=== PATIENT | male | born 1980 | race Caucasian/White ===

== ENCOUNTER 2021-03-30 09:30 | Inpatient (IN) ==
[2021-03-30] MEDS ORDERED: SODIUM CHLORIDE 0.9% 1000ML 1,000 ML IV STA (11:07)
[2021-03-30] MEDS ORDERED: SODIUM CHLORIDE 0.9% 1000ML 1,000 ML IV ONE (11:07)
[2021-03-30] MEDS ORDERED: VANCOMYCIN CONSULT ACTIVE PRN (11:11)
[2021-03-30] MEDS ORDERED: CEFEPIME 2,000 MG/20 ML VIAL IV STA (11:11)
[2021-03-30] MEDS ORDERED: VANCOMYCIN HCL 1,250 MG in SODIUM CHLORIDE 0.9% 500 ML IV ONE (11:11)
[2021-03-30] MEDS ORDERED: METOCLOPRAMIDE HCL INJ 5 MG/ML 2 ML VIAL IV ONE (11:13)
[2021-03-30] MEDS ORDERED: diphenhydrAMINE 50 MG/ML VIAL IV STA (11:25)
--- NOTE | 2021-03-30 11:36 | Emergency Department Note ---
Impression & Plan Multifocal pneumonia, Acute dehydration, Nausea ED Provider Note INFORMANT: Patient ED PROVIDER(S): Julian Frank MD CHIEF COMPLAINT: Shortness of breath and nausea PLAN: Disposition: Admitted Condition: Good Outpatient prescription management: none Referral: None MEDICAL DECISION MAKING: Patient presents back to emergency department because of shortness of breath and continued nausea. He has bilateral pneumonia. He was hypotensive and tachycardic. This was concerned about possible sepsis. The patient had fluids administered. Broad-spectrum antibiotics were administered as well as blood work and blood cultures. Record was reviewed. The patient was very nauseated and noted abdominal pain. He was treated with Reglan and Benadryl. He was also given IV Ativan as during the work-up he had "a full-blown panic attack" by his own accord. Family was present and notes that he does have anxiety but this was a significant panic attack. The Ativan worked very well to control his panic and anxiety symptoms. The patient underwent CT imaging. Under the circumstances I suspect patient is dehydrated as he is not eating and drinking well. He and I discussed further management in the hospital. He and family were in agreement. Consultation was made with the hospitalist service. The patient was evaluated by Dr. Corrales's team for the management. Triage Nursing notes reviewed and agree them. Vital Signs: reviewed and remarkable for tachycardia Differential diagnosis: Infection, dehydration, metabolic abnormality, hypo/hyperglycemia, electrolyte disturbance, anemia, hypoxia, cardiac sources, intracerebral event, toxicologic, neurologic, as well as other pathologies. Diagnostics interpreted by me: ECG: Rate: 69 Rhythm:Normal sinus [place]:Normal QRS:Normal ST segements:No elevation or depression Other:No PACs or PVCs Cardiac Monitoring: Cardiac monitoring ordered by me: The patient was placed on continuous cardiac monitoring and observed. It revealed a sinus tachycardia at 102 beats per minute without ectopy or evidence of dysrhythmia. Imaging studies: Chest x-ray shows bilateral pneumonia however improved since prior.. CT scan of the abdomen and pelvis reveals no acute intra-abdominal findings. Gr oundglass densities noted in the base of the lungs. HPI: The patient is a 40 year old male who presents to the Emergency Room with complaints of SOB. This started last week and is persisting. Patient was seen in the ER multiple times over the last week. He was diagnosed with multifocal pneumonia. I suspect to be viral. He was treated with oral antibiotics. This is most modified to Levaquin. He was also noting intense nausea. He is unable to eat and drink. He was able to take his Levaquin today but notes significant difficulty doing so. The patient also notes the following associated symptoms, epigastric abdominal pain, night sweats. The patient has tried Zofran unsuccessfully for nausea relieving factors. Current pain is rated as 4/10. Pt denies LOC, headache, fevers, chills, diaphoresis, visual changes, neck pain, chest pain, vomiting, back pain, melena, hematochezia, urinary symptoms, numbness, weakness, lymphadenopathy, rash, or other complaints. ROS: See above HPI for pertinent positives & negatives. A total of 10 systems reviewed and were otherwise negative. PAST MEDICAL HISTORY:See Below , multifocal pneumonia PAST SURGICAL HISTORY:See Below, FAMILY HISTORY:See Below SOCIAL HISTORY:See Below, HOME MEDICATIONS:See Below ALLERGIES:See Below VITALS:See Below PHYSICAL EXAMINATION: GENERAL: Awake, alert, uncomfortable-appearing, in no distress HENT: Normocephalic, atraumatic. Oropharynx unremarkable. EYES: Normal conjunctiva. Sclera non-icteric. NECK: Inspection normal. Non-tender. Supple. No nuchal rigidity. FROM. No masses. RESPIRATORY: Clear to auscultation. No wheezes. No rales. Normal respiratory effort. CARDIAC: Tachycardic rate. Normal rhythm. No murmurs. No rubs. Extremities warm and well perfused. Pulses equal. No JVD. GI: Soft, non-distended. Epigastric tenderness to palpation. No rebound or guarding. No masses. RECTAL: Deferred. MUSCULOSKELETAL: Atraumatic. Chest examination reveals no tenderness. The back is symmetrical on inspection without obvious abnormality. There is no CVA tenderness to palpation. No joint edema. LOWER EXTREMITIES: Calves are equal size bilaterally and non-tender. No edema. No discoloration. NEURO: Normal sensorium. No sensory or motor deficits noted. SKIN: No rash or jaundice noted. Julian Frank MD Past Med/Surg History Medical History (Updated 03/30/21 @ 15:57 by Gasper Rodriguez MD) Depression Flu-like symptoms Pneumonia Family History Other Family history non-contributory Social History Smoking Status: Never smoker Hx Alcohol Use: No Hx Substance Use: Yes Last Used Substance: Unknown Preferred Language: Bulgarian Communication Ability: Effective Pricing Clerk Required: No Beliefs That Will Affect Care: None Current Living Situation: Spouse and Family Feels Safe at Home: Yes Assistive Devices: None Allergies Allergies Allergy/AdvReac Type Severity Reaction Status Date / Time aspirin Allergy Severe FACE AND Verified 03/30/21 11:12 THROAT SWELLS ibuprofen Allergy Severe FACE AND Verified 03/30/21 11:12 THROAT SWELL Home Meds Home Medications Medication Instructions Recorded Confirmed escitalopram oxalate 20 mg tablet 30 mg PO QAM 03/19/21 03/30/21 acetaminophen 500 mg tablet 500 - 1,000 mg PO Q6H PRN 03/22/21 03/30/21 (Tylenol Extra Strength) naproxen sodium 220 mg tablet 220 mg PO BID PRN 03/22/21 03/30/21 (Aleve) Previous Rx's Medication Instructions Recorded levofloxacin 750 mg tablet 750 mg PO DAILY 10 Days #10 tab 03/25/21 prochlorperazine maleate 10 mg 10 mg PO QID PRN #14 tab 03/25/21 tablet Results & Data (ED) Vital Signs Vital Signs - 24 hr 03/30/21 09:42 03/30/21 11:42 03/30/21 12:03 Temperature 36.7 C Temperature Source Oral Pulse Rate 106 H 73 72 Pulse Rate [Finger] 75 Pulse Rate from SpO2 Sensor Pulse Rhythm [Finger] Pulse Strength [Finger] Respiratory Rate 20 20 19 Respiratory Effort / Characteristics Respiratory Depth Respiratory Pattern Blood Pressure 94/65 L 95/64 L Blood Pressure [Left Arm] 95/64 L Blood Pressure Mean 74 74 Blood Pressure Mean [Left Arm] 74 Blood Pressure Position [Left Arm] Pulse Oximetry 93 98 Oxygen Delivery Method Room Air Room Air Oxygen Flow Rate Sepsis Recent Fever Within 48 Hours No Sepsis New/Unexplained Change in Mental Status N/A Sepsis Action Taken by Nursing No Action Required 03/30/21 12:04 03/30/21 12:30 03/30/21 13:00 Temperature Temperature Source Pulse Rate 93 H Pulse Rate [Finger] 72 Pulse Rate from SpO2 Sensor 92 H Pulse Rhythm [Finger] Regular Pulse Strength [Finger] Normal Respiratory Rate 20 16 Respiratory Effort / Characteristics Non-Labored Spontaneous Respiratory Depth Normal Respiratory Pattern Regular Blood Pressure 130/85 109/73 Blood Pressure [Left Arm] 115/80 Blood Pressure Mean 100 85 Blood Pressure Mean [Left Arm] 91 Blood Pressure Position [Left Arm] Semi-fowlers Pulse Oximetry 99 100 98 Oxygen Delivery Method Room Air Room Air Oxygen Flow Rate Sepsis Recent Fever Within 48 Hours Sepsis New/Unexplained Change in Mental Status Sepsis Action Taken by Nursing 03/30/21 13:10 03/30/21 13:30 03/30/21 14:00 Temperature Temperature Source Pulse Rate 76 76 Pulse Rate [Finger] Pulse Rate from SpO2 Sensor 76 74 Pulse Rhythm [Finger] Pulse Strength [Finger] Respiratory Rate 24 22 Respiratory Effort / Characteristics Respiratory Depth Respiratory Pattern Blood Pressure 110/79 92/62 L Blood Pressure [Left Arm] Blood Pressure Mean 89 72 Blood Pressure Mean [Left Arm] Blood Pressure Position [Left Arm] Pulse Oximetry 98 96 96 Oxygen Delivery Method Room Air Oxygen Flow Rate 0 Sepsis Recent Fever Within 48 Hours Sepsis New/Unexplained Change in Mental Status Sepsis Action Taken by Nursing Laboratory Data Result diagrams: 03/30/21 11:49 03/30/21 11:49 Lab Results 03/30/21 03/30/21 03/30/21 Range/Units 11:49 11:49 11:49 WBC 16.77 H (4.8-10.8) K/uL RBC 4.89 (4.7-6.1) M/uL Hgb 14.9 (14.0-18.0) g/dL Hct 41.7 L (42-52) % MCV 85.3 (80-100) fL MCH 30.5 (25-34) pg MCHC 35.7 (32-36) g/dL RDW Std Deviation 38.9 (36.4-46.3) fL RDW Coeff of Nikun[place] 12.8 (11.5-14.5) % Plt Count 469 H (130-400) K/uL MPV 9.3 (7.4-10.4) fL Immature Gran % (Auto) 3.6 % Neut % (Auto) 78.2 % Lymph % (Auto) 11.2 % [place] % (Auto) 1.8 % Eos % (Auto) 5.0 % Baso % (Auto) 0.2 % Neut # (Auto) 13.13 H (1.4-6.5) K/uL Lymph # (Auto) 1.87 (1.2-3.4) K/uL [place] # (Auto) 0.30 (0.11-0.59) K/uL Eos # (Auto) 0.84 H (0-0.5) K/uL Baso # (Auto) 0.03 (0-0.2) K/uL Immature Gran # (Auto) 0.60 H (0.00-0.02) K/uL ESR 67 H (0-15) mm/hr PT (9.0-12.0) Seconds INR (0.9-1.1) Sodium 135 L (136-145) mmol/L Potassium 3.7 (3.5-5.1) mmol/L Chloride 98 (98-107) mmol/L Carbon Dioxide 28 (21-32) mmol/L Anion Gap 9.0 (3-11) BUN 20 H (7-18) mg/dl Creatinine 1.31 (0.6-1.4) mg/dl Est Cr Clr Drug Dosing 61.7 ml/min Est GFR ( Amer) 77.8 ml/min Est GFR (Non-Af Amer) 67.2 ml/min BUN/Creatinine Ratio 15.3 (10-20) Glucose 92 (70-99) mg/dl Lactate (0.4-2.0) mmol/L Calcium 8.7 (8.5-10.1) mg/dl Total Bilirubin 0.5 (0.2-1) mg/dl AST 22 (15-37) U/L ALT 71 (12-78) U/L Alkaline Phosphatase 107 (45-117) U/L Total Creatine Kinase (39-308) U/L Troponin I < 0.015 (0-0.045) ng/ml C-Reactive Protein (0-0.29) mg/dl NT-Pro-B Natriuret Pep 39 (0-450) pg/ml Total Protein 7.0 (6.4-8.2) gm/dl Albumin 2.6 L (3.4-5.0) gm/dl Globulin 4.4 H (2.5-4.0) gm/dl Albumin/Globulin Ratio 0.6 L (0.9-2) Lipase (73-393) U/L Procalcitonin (0-0.5) ng/ml COVID-19 Eval Order SARS-CoV-2 (PCR) (Negative) 03/30/21 03/30/21 03/30/21 Range/Units 11:49 11:49 11:49 WBC (4.8-10.8) K/uL RBC (4.7-6.1) M/uL Hgb (14.0-18.0) g/dL Hct (42-52) % MCV (80-100) fL MCH (25-34) pg MCHC (32-36) g/dL RDW Std Deviation (36.4-46.3) fL RDW Coeff of [place] (11.5-14.5) % Plt Count (130-400) K/uL MPV (7.4-10.4) fL Immature Gran % (Auto) % Neut % (Auto) % Lymph % (Auto) % [place] % (Auto) % Eos % (Auto) % Baso % (Auto) % Neut # (Auto) (1.4-6.5) K/uL Lymph # (Auto) (1.2-3.4) K/uL [place] # (Auto) (0.11-0.59) K/uL Eos # (Auto) (0-0.5) K/uL Baso # (Auto) (0-0.2) K/uL Immature Gran # (Auto) (0.00-0.02) K/uL ESR (0-15) mm/hr PT (9.0-12.0) Seconds INR (0.9-1.1) Sodium (136-145) mmol/L Potassium (3.5-5.1) mmol/L Chloride (98-107) mmol/L Carbon Dioxide (21-32) mmol/L Anion Gap (3-11) BUN (7-18) mg/dl Creatinine (0.6-1.4) mg/dl Est Cr Clr Drug Dosing ml/min Est GFR ( Amer) ml/min Est GFR (Non-Af Amer) ml/min BUN/Creatinine Ratio (10-20) Glucose (70-99) mg/dl Lactate (0.4-2.0) mmol/L Calcium (8.5-10.1) mg/dl Total Bilirubin (0.2-1) mg/dl AST (15-37) U/L ALT (12-78) U/L Alkaline Phosphatase (45-117) U/L Total Creatine Kinase 26 L (39-308) U/L Troponin I (0-0.045) ng/ml C-Reactive Protein 11.80 H (0-0.29) mg/dl NT-Pro-B Natriuret Pep (0-450) pg/ml Total Protein (6.4-8.2) gm/dl Albumin (3.4-5.0) gm/dl Globulin (2.5-4.0) gm/dl Albumin/Globulin Ratio (0.9-2) Lipase 120 (73-393) U/L Procalcitonin (0-0.5) ng/ml COVID-19 Eval Order SARS-CoV-2 (PCR) (Negative) 03/30/21 03/30/21 03/30/21 Range/Units 11:50 11:50 11:50 WBC (4.8-10.8) K/uL RBC (4.7-6.1) M/uL Hgb (14.0-18.0) g/dL Hct (42-52) % MCV (80-100) fL MCH (25-34) pg MCHC (32-36) g/dL RDW Std Deviation (36.4-46.3) fL RDW Coeff of [place] (11.5-14.5) % Plt Count (130-400) K/uL MPV (7.4-10.4) fL Immature Gran % (Auto) % Neut % (Auto) % Lymph % (Auto) % [place] % (Auto) % Eos % (Auto) % Baso % (Auto) % Neut # (Auto) (1.4-6.5) K/uL Lymph # (Auto) (1.2-3.4) K/uL [place] # (Auto) (0.11-0.59) K/uL Eos # (Auto) (0-0.5) K/uL Baso # (Auto) (0-0.2) K/uL Immature Gran # (Auto) (0.00-0.02) K/uL ESR (0-15) mm/hr PT (9.0-12.0) Seconds INR (0.9-1.1) Sodium (136-145) mmol/L Potassium (3.5-5.1) mmol/L Chloride (98-107) mmol/L Carbon Dioxide (21-32) mmol/L Anion Gap (3-11) BUN (7-18) mg/dl Creatinine (0.6-1.4) mg/dl Est Cr Clr Drug Dosing ml/min Est GFR ( Amer) ml/min Est GFR (Non-Af Amer) ml/min BUN/Creatinine Ratio (10-20) Glucose (70-99) mg/dl Lactate (0.4-2.0) mmol/L Calcium (8.5-10.1) mg/dl Total Bilirubin (0.2-1) mg/dl AST (15-37) U/L ALT (12-78) U/L Alkaline Phosphatase (45-117) U/L Total Creatine Kinase (39-308) U/L Troponin I (0-0.045) ng/ml C-Reactive Protein (0-0.29) mg/dl NT-Pro-B Natriuret Pep (0-450) pg/ml Total Protein (6.4-8.2) gm/dl Albumin (3.4-5.0) gm/dl Globulin (2.5-4.0) gm/dl Albumin/Globulin Ratio (0.9-2) Lipase (73-393) U/L Procalcitonin 0.05 (0-0.5) ng/ml COVID-19 Eval Order Covid19 at [facility] SARS-CoV-2 (PCR) NEGATIVE (Negative) 03/30/21 03/30/21 03/30/21 Range/Units 12:06 14:00 14:00 WBC (4.8-10.8) K/uL RBC (4.7-6.1) M/uL Hgb (14.0-18.0) g/dL Hct (42-52) % MCV (80-100) fL MCH (25-34) pg MCHC (32-36) g/dL RDW Std Deviation (36.4-46.3) fL RDW Coeff of [place] (11.5-14.5) % Plt Count (130-400) K/uL MPV (7.4-10.4) fL Immature Gran % (Auto) % Neut % (Auto) % Lymph % (Auto) % [place] % (Auto) % Eos % (Auto) % Baso % (Auto) % Neut # (Auto) (1.4-6.5) K/uL Lymph # (Auto) (1.2-3.4) K/uL [place] # (Auto) (0.11-0.59) K/uL Eos # (Auto) (0-0.5) K/uL Baso # (Auto) (0-0.2) K/uL Immature Gran # (Auto) (0.00-0.02) K/uL ESR (0-15) mm/hr PT 12.0 (9.0-12.0) Seconds INR 1.2 H (0.9-1.1) Sodium (136-145) mmol/L Potassium (3.5-5.1) mmol/L Chloride (98-107) mmol/L Carbon Dioxide (21-32) mmol/L Anion Gap (3-11) BUN (7-18) mg/dl Creatinine (0.6-1.4) mg/dl Est Cr Clr Drug Dosing ml/min Est GFR ( Amer) ml/min Est GFR (Non-Af Amer) ml/min BUN/Creatinine Ratio (10-20) Glucose (70-99) mg/dl Lactate 1.3 1.1 (0.4-2.0) mmol/L Calcium (8.5-10.1) mg/dl Total Bilirubin (0.2-1) mg/dl AST (15-37) U/L ALT (12-78) U/L Alkaline Phosphatase (45-117) U/L Total Creatine Kinase (39-308) U/L Troponin I (0-0.045) ng/ml C-Reactive Protein (0-0.29) mg/dl NT-Pro-B Natriuret Pep (0-450) pg/ml Total Protein (6.4-8.2) gm/dl Albumin (3.4-5.0) gm/dl Globulin (2.5-4.0) gm/dl Albumin/Globulin Ratio (0.9-2) Lipase (73-393) U/L Procalcitonin (0-0.5) ng/ml COVID-19 Eval Order SARS-CoV-2 (PCR) (Negative) Administered Medications Sodium Chloride (Nss 1000ml) 1,000 mls @ 125 mls/hr IV .Q8H STA Stop: 03/30/21 19:06 Last Infusion: 03/30/21 16:15 Dose: 0 mls/hr Documented by: [id number] Admin: 03/30/21 13:30 Dose: 125 mls/hr Documented by: [id number] Lactated Ringer's (Lr) 1,000 mls @ 100 mls/hr IV .Q10H JOSE Stop: 04/29/21 14:52 Last Admin: 03/30/21 16:54 Dose: 100 mls/hr Documented by: [id number] Discontinued Medications Diphenhydramine HCl (Diphenhydramine 50 Mg/Ml Vial) 12.5 mg IV NOW STA Stop: 03/30/21 11:26 Last Admin: 03/30/21 12:39 Dose: 12.5 mg Documented by: [id number] Sodium Chloride (Nss 1000ml) 1,000 mls @ 999 mls/hr IV .Q1H1M ONE Stop: 03/30/21 12:07 Last Infusion: 03/30/21 14:00 Dose: 0 mls/hr Documented by: [id number] Admin: 03/30/21 11:30 Dose: 999 mls/hr Documented by: [id number] Vancomycin HCl 1,250 mg/ (Sodium Chloride) 525 mls @ 200 mls/hr IV NOW ONE Stop: 03/30/21 13:48 Last Infusion: 03/30/21 15:17 Dose: 0 mls/hr Documented by: [id number] Admin: 03/30/21 11:30 Dose: 200 mls/hr Documented by: [id number] Cefepime HCl (Maxipime) 2,000 mg in 20 mls @ 5 mls/min IV NOW STA; Protocol Stop: 03/30/21 11:14 Last Admin: 03/30/21 12:39 Dose: 5 mls/min Documented by: [id number] Lorazepam (Ativan) 1 mg in 2 mls @ 2 mls/min IV NOW STA Stop: 03/30/21 12:33 Last Admin: 03/30/21 12:40 Dose: 2 mls/min Documented by: [id number] Ioversol (Optiray 320 100ml) 94 ml IV ONCE ONE Stop: 03/30/21 14:50 Last Admin: 03/30/21 14:49 Dose: 94 ml Documented by: [id number] Metoclopramide HCl (Metoclopramide Hcl Inj 5 Mg/Ml 2 Ml Vial) 5 mg IV ONE ONE Stop: 03/30/21 11:14 Last Admin: 03/30/21 12:40 Dose: 5 mg Documented by: [id number] Imaging Data Radiologist's Impression: Chest X-Ray 03/30/21 11:06 XR chest 1V portable HISTORY: 40 years-old Male Dyspnea acute shortness of breath with weakness COMPARISON: Chest radiograph and CTA chest 03/25/2021 TECHNIQUE: Portable AP view the chest FINDINGS: Cardiac mediastinal and hilar silhouettes are within normal limits. Right grea ter than left bilateral interstitial opacities have mildly improved from comparison. No pneumothorax or large pleural effusion. No lobar airspace consolidation or acute fracture. IMPRESSION: Persistent bilateral right greater than left pulmonary opacities compatible with multifocal pneumonia, moderately improved from 03/25/2021. ACT 112: Negative or not required by law. The above report was generated using voice recognition software. It may contain grammatical, syntax or spelling errors. Electronically signed by: Ricardo Miles M.D. 03/30/2021 11:36 AM Abdomen/Pelvis CT 03/30/21 12:59 CT OF THE ABDOMEN AND PELVIS WITH CONTRAST CLINICAL HISTORY: Upper abdominal pain. COMPARISON STUDY: None. TECHNIQUE: Following IV administration of 94 mL of Optiray, axial images of the abdomen and pelvis were obtained from the lung bases to the proximal femurs. Images were reviewed in the axial, sagittal, and coronal planes. IV contrast was administered without complication. Automated exposure control was utilized for the study. A dose lowering technique was utilized adhering to the principles of ALARA. FINDINGS: Please note that the chest CT will be reported separately. Multifocal groundglass opacities within the lower lungs are noted. The findings are better depicted on the chest CT. No pneumatosis, free air or portal venous gas is present. The liver, spleen, adrenal glands, kidneys and pancreas are unremarkable. There is no biliary or pancreatic ductal dilatation. There is no peripancreatic or pericholecystic infiltration. No hydronephrosis is present. The caliber and wall thickness of small and large bowel are normal. The appendix is normal. There is trace fluid fluid within the pelvis. There is no evidence for a bowel obstruction. Major vasculature is patent. No acute fracture or suspicious lesion is identified within the visualized skeletal structures. IMPRESSION: 1. No no bowel obstruction. No bowel wall thickening. Normal appendix. 2. Trace fluid within the pelvis, a nonspecific finding. 3. Multifocal groundglass opacities within the lungs consistent with viral pneumonia. These are better depicted on the chest CT which will be reported separately. ACT 112: Negative or not required by law. Electronically signed by: David Harvey M.D. 03/30/2021 3:[address] 03/30/21 14:12 CT chest diagnostic wo con CT DOSE: 506.95 mGy.cm HISTORY: Shortness of breath. TECHNIQUE: Multiaxial CT images of the chest were performed without contrast. A dose lowering technique was utilized adhering to the principles of ALARA. COMPARISON: Chest CTA 03/25/2021. FINDINGS: No pneumothorax. No pleural effusions. The central airways are patent. Scattered multifocal groundglass airspace opacities have slightly improved in the interval. This is most pronounced within the right upper lobe. No fractures within the visualized osseous structures. Please refer to the same day abdomen and pelvis CT for further evaluation of the abdominal structures. The heart is normal in size. Normal esophagus. Slight improvement in the mild mediastinal lymphadenopathy. Normal caliber thoracic aorta. IMPRESSION: Slight improvement in the patchy multifocal groundglass airspace opacities and mediastinal lymphadenopathy. This likely represents a resolving viral pneumonia. ACT 112: Negative or not required by law. Electronically signed by: Duane Tsai M.D. 03/30/2021 3:04 PM Discharge Plan Visit Data Chief Complaint: Shortness of Breath/Dyspnea Stated Complaint: SOB,NO APPETITE,DIZZY, POSSIBLE PNEUOMONIA ED Provider: Julian Frank Discharge Problem: Multifocal pneumonia, Acute dehydration, Nausea Patient Disposition: Admitted As Inpatient Discharge Instructions Interventions: ED Discharge Assessment Last Done: 03/30/21 16:05
--- NOTE | 2021-03-30 11:37 | XRay Report ---
XR chest 1V portable HISTORY: 40 years-old Male Dyspnea acute shortness of breath with weakness COMPARISON: Chest radiograph and CTA chest 03/25/2021 TECHNIQUE: Portable AP view the chest FINDINGS: Cardiac mediastinal and hilar silhouettes are within normal limits. Right greater than left bilateral interstitial opacities have mildly improved from comparison. No pneumothorax or large pleural effusi on. No lobar airspace consolidation or acute fracture. IMPRESSION: Persistent bilateral right greater than left pulmonary opacities compatible with multifoc al pneumonia, moderately improved from 03/25/2021. ACT 112: Negative or not required by law. The above report was generated using voice recognition software. It may contain grammatical, syntax o r spelling errors. Electronically signed by: Ricardo Miles M.D. 03/30/2021 11:36 AM
[2021-03-30 12:00] LABS: Basophils # (auto) 0.03 K/uL (0-0.2); Basophils % (auto) 0.2 %; Eosinophils # (auto) 0.84 K/uL (0-0.5); Hematocrit (blood only) 41.7 % (42-52); Hemoglobin 14.9 g/dL (14.0-18.0); Immature Granulocytes % (auto) 3.6 %; Lymphocytes # (auto) 1.87 K/uL (1.2-3.4); Lymphocytes % (auto) 11.2 %; Mean Corpuscular Hemoglobin 30.5 pg (25-34); Mean Corpuscular Hgb Conc 35.7 g/dL (32-36); Mean Corpuscular Volume 85.3 fL (80-100); Mean Platelet Volume 9.3 fL (7.4-10.4); Monocytes % (auto) 1.8 %; Neutrophils # (auto) 13.13 K/uL (1.4-6.5); Neutrophils % (auto) 78.2 %; Platelet Count 469 K/uL (130-400); RDW Coefficient of Variation 12.8 % (11.5-14.5); RDW Standard Deviation 38.9 fL (36.4-46.3); Red Blood Count 4.89 M/uL (4.7-6.1); White Blood Count 16.77 K/uL (4.8-10.8)
[2021-03-30 12:16] LABS: Alanine Aminotransferase 71 U/L (12-78); Albumin Level 2.6 gm/dl (3.4-5.0); Aspartate Aminotransferase 22 U/L (15-37); BUN Creatinine Ratio 15.3 (10-20); Blood Urea Nitrogen 20 mg/dl (7-18); Calcium 8.7 mg/dl (8.5-10.1); Carbon Dioxide 28 mmol/L (21-32); Chloride 98 mmol/L (98-107); Creatinine Clr Calc Pharmacy 61.7 ml/min; Est GFR (African American) 77.8 ml/min; Est GFR (Non-African American) 67.2 ml/min; Glucose 92 mg/dl (70-99); Potassium 3.7 mmol/L (3.5-5.1); Sodium 135 mmol/L (136-145)
[2021-03-30 12:20] LABS: Albumin Globulin Ratio 0.6 (0.9-2); Alkaline Phosphatase 107 U/L (45-117); Bilirubin,Total 0.5 mg/dl (0.2-1); Globulin 4.4 gm/dl (2.5-4.0); NT Pro B Type Natriuretic Pept 39 pg/ml (0-450); Troponin I < 0.015 ng/ml (0-0.045)
[2021-03-30] MEDS ORDERED: LORazepam 1 MG/2 ML VIAL IV STA (12:32)
--- NOTE | 2021-03-30 14:18 | History & Physical Report ---
Date of Service March 30, 2021 Assessment & Plan (1) Bilateral interstitial pneumonia: Plan: Bacterial vs. viral vs. hypersensitivity pneumonia vs. rheumatology/inflammatory - Patient has completed an 11 day course of broad spectrum antibiotics to include- doxy/cefdinir/Levaquin - Completed 60 mg 4 day course of prednisone - remains with improved bilateral ground glass opacities - pulmonary consulted for evaluation and ? bronchoscopy - Legionella antigen and biofire sent - CRP, ESR, PCT pending - if elevated add RAOUL/ANCA - Hold abx - discussed with pulmonary (2) Nausea: Plan: Zofran PRN - hold doxy (3) Dehydration: Plan: LR overnight (4) Gastritis: Plan: Continue PPI History of Present Illness Chief Complaint: nausea Primary Care Provider: [facility] PCP 40 YOM with past medical history: Anxiety, PNA. Patient originally was diagnosed with PNA on , following a 5-6 days of flulike symptoms of fevers, chest tightness, nonproductive cough, fatigue and sore throat. He has negative COVID tests. The patient did buy a warehouse last month that he reports was damp and had mold in it. He was not involved in the cleaning of this, but was in the warehouse. Patient does not smoke but endorses recently stopping vaping. He also had a negative anaplasmosis and Lyme. He was originally placed on Cefdinir and Doxycycline; patient then returned on for nausea and vomiting but with mild improvement in his respiratory complaints. He had a CXR repeated at that time with some pr ogression of interstitial thickening and small bilateral opacities. He was originally taking the doxycycline without food per reports. Patient returned on for worsening of fevers and body aches and continued nausea without vomiting. He had a CT of the chest performed with multilobar ground glass opacities favoring viral PNA. His antibiotics were changed to Levaquin and was started on Pepcid orally and started on Steroids for his dyspnea. he was given 60mg of prednisone for 4 days. He reports that on the last day of his steroids he felt well but on the next day felt very tired and his nausea returned. He has not been able to keep down his medications. The patient endorses that he still is having night sweats that occur every night to where he has to change his shirt ~ 3 x per night. Today his CXR shows bilateral opacities with improvement from 03/25. His RR and SPO2 are improved from prior. WBC count increased to 16 with NLR 7:1. He was given a dose of Cefepime and Vancomycin in the EMD. Hospitalist service was consulted for admission. Patient will be admitted for continued evaluation of his pulmonary status and inflammatory/infectious markers. Patient was ordered a CT of the abdomen with contrast by the [facility], will add on CT of the chest without contrast to evaluate pulmonary process. Pulmonary consult placed. Patient has received his COVID vaccine and his COVID test on admission is NEGATIVE. Allergies Allergy/AdvReac Type Severity Reaction Status Date / Time aspirin Allergy Severe FACE AND Verified 03/30/21 11:12 THROAT SWELLS ibuprofen Allergy Severe FACE AND Verified 03/30/21 11:12 THROAT SWELL Home Medications Medication Instructions Recorded Confirmed Type escitalopram oxalate 20 mg tablet 30 mg PO QAM 03/19/21 03/30/21 History acetaminophen 500 mg tablet 500 - 1,000 mg PO Q6H PRN 03/22/21 03/30/21 History (Tylenol Extra Strength) naproxen sodium 220 mg tablet 220 mg PO BID PRN 03/22/21 03/30/21 History (Aleve) levofloxacin 750 mg tablet 750 mg PO DAILY 10 Days #10 tab 03/25/21 03/30/21 Rx prochlorperazine maleate 10 mg 10 mg PO QID PRN #14 tab 03/25/21 03/30/21 Rx tablet Past Med/Surg History Medical History (Updated 03/30/21 @ 15:57 by Gasper Rodriguez MD) Depression Flu-like symptoms Pneumonia Family History Other Family history non-contributory Social History Smoking Status: Never smoker Hx Alcohol Use: No Hx Substance Use: Yes Last Used Substance: Unknown Preferred Language: Urdu Communication Ability: Effective Equipment Lead Required: No Beliefs That Will Affect Care: None Current Living Situation: Spouse and Family Feels Safe at Home: Yes Assistive Devices: None Review of Systems Review of Systems: REVIEW OF SYSTEMS: Constitutional: (+) fever, sweats or chills Eyes: No diplopia, no worsening or blurred vision ENT: normal hearing, no trouble swallowing Respiratory: No cough, sputum, improved dyspnea at rest or on exertion Cardiovascular: No chest pain, tightness or palpitations Abdomen: (+) nausea, No pain, vomiting, diarrhea or constipation Musculoskeletal: No joint pain, calf pain, swelling Neurologic: No weakness, numbness/tingling, or balance problems Psychiatric: No anxiety or depression Skin: No rash or itch Physical Exam Constitutional: .PHYSICAL EXAM: General: awake, alert, no apparent distress Head: Normocephalic, atraumatic ENT: PERRL, EOMI, no pharyngeal exudate, mucous membranes moist Neuro: AAO x 3, speech clear and appropriate, strength intact bilaterally 5/5, sensation intact and equal all extremities and dermatomes, no pronator drift Chest: equal rise and fall of the chest, no accessory muscle use, no heaves or thrills, scattered coarse crackles, no egophony, good air movement bilaterally on RA Cardiac: Regular rate and rhythm, telemetry reviewed, skin warm dry, cap refill <3 seconds, peripheral pulses +2 no JVD, no murmur, no JVD, no edema GI: NABS x 4 quadrants, soft, nontender to palpation, no rebound, guarding or tenderness : Spontaneously voiding, no pain, no CVA tenderness, Extremities: Normal inspection, no peripheral edema or erythema, calfs nontender to palpation Psych: Normal mood and affect Skin: no rash or erythema Results & Data Results & Data ([facility]) Vital Signs (Past 12 Hours) Vital Signs Temp Pulse Pulse Resp BP BP Pulse Ox 03/30/21 13:10 98 03/30/21 13:00 72 16 115/80 98 03/30/21 12:04 99 03/30/21 11:42 75 18 95/64 L 98 03/30/21 09:42 36.7 C 106 H 20 94/65 L 93 Laboratory Results Abnormal lab results 03/30/21 03/30/21 03/30/21 Range/Units 11:49 11:49 11:49 WBC 16.77 H (4.8-10.8) K/uL Hct 41.7 L (42-52) % Plt Count 469 H (130-400) K/uL Neut # (Auto) 13.13 H (1.4-6.5) K/uL Eos # (Auto) 0.84 H (0-0.5) K/uL Immature Gran # (Auto) 0.60 H (0.00-0.02) K/uL ESR 67 H (0-15) mm/hr Sodium 135 L (136-145) mmol/L BUN 20 H (7-18) mg/dl C-Reactive Protein (0-0.29) mg/dl Albumin 2.6 L (3.4-5.0) gm/dl Globulin 4.4 H (2.5-4.0) gm/dl Albumin/Globulin Ratio 0.6 L (0.9-2) 03/30/21 Range/Units 11:49 WBC (4.8-10.8) K/uL Hct (42-52) % Plt Count (130-400) K/uL Neut # (Auto) (1.4-6.5) K/uL Eos # (Auto) (0-0.5) K/uL Immature Gran # (Auto) (0.00-0.02) K/uL ESR (0-15) mm/hr Sodium (136-145) mmol/L BUN (7-18) mg/dl C-Reactive Protein 11.80 H (0-0.29) mg/dl Albumin (3.4-5.0) gm/dl Globulin (2.5-4.0) gm/dl Albumin/Globulin Ratio (0.9-2) Diagnostic Findings Chest X-Ray 03/30/21 11:06 XR chest 1V portable HISTORY: 40 years-old Male Dyspnea acute shortness of breath with weakness COMPARISON: Chest radiograph and CTA chest 03/25/2021 TECHNIQUE: Portable AP view the chest FINDINGS: Cardiac mediastinal and hilar silhouettes are within normal limits. Right greater than left bilateral interstitial opacities have mildly improved from comparison. No pneumothorax or large pleural effusion. No lobar airspace consolidation or acute fracture. IMPRESSION: Persistent bilateral right greater than left pulmonary opacities compatible with multifocal pneumonia, moderately improved from 03/25/2021. ACT 112: Negative or not required by law. The above report was generated using voice recognition software. It may contain grammatical, syntax or spelling errors. Electronically signed by: Ricardo Miles M.D. 03/30/2021 11:36 AM Medications Administered Home Medications escitalopram oxalate 20 mg tablet 30 mg PO QAM 03/19/21 [History Confirmed 03/30/21] acetaminophen 500 mg tablet (Tylenol Extra Strength) 500 - 1,000 mg PO Q6H PRN 03/22/21 [History Confirmed 03/30/21] naproxen sodium 220 mg tablet (Aleve) 220 mg PO BID PRN 03/22/21 [History Confirmed 03/30/21] levofloxacin 750 mg tablet 750 mg PO DAILY 10 Days #10 tab 03/25/21 [Rx Confirmed 03/30/21] prochlorperazine maleate 10 mg tablet 10 mg PO QID PRN #14 tab 03/25/21 [Rx Confirmed 03/30/21] Active Medications Sodium Chloride (Nss 1000ml) 1,000 mls @ 125 mls/hr IV .Q8H STA Stop: 03/30/21 19:06 Miscellaneous Information (Vancomycin Consult Active) 1 ea N/A UD PRN PRN Reason: Consult Stop: 04/29/21 11:10 Discontinued Medications Diphenhydramine HCl (Diphenhydramine 50 Mg/Ml Vial) 12.5 mg IV NOW STA Stop: 03/30/21 11:26 Last Admin: 03/30/21 12:39 Dose: 12.5 mg Documented by: [id number] Sodium Chloride (Nss 1000ml) 1,000 mls @ 999 mls/hr IV .Q1H1M ONE Stop: 03/30/21 12:07 Last Infusion: 03/30/21 14:00 Dose: 0 mls/hr Documented by: [id number] Admin: 03/30/21 11:30 Dose: 999 mls/hr Documented by: [id number] Cefepime HCl (Maxipime) 2,000 mg in 20 mls @ 5 mls/min IV NOW STA; Protocol Stop: 03/30/21 11:14 Last Admin: 03/30/21 12:39 Dose: 5 mls/min Documented by: [id number] Lorazepam (Ativan) 1 mg in 2 mls @ 2 mls/min IV NOW STA Stop: 03/30/21 12:33 Last Admin: 03/30/21 12:40 Dose: 2 mls/min Documented by: [id number] Metoclopramide HCl (Metoclopramide Hcl Inj 5 Mg/Ml 2 Ml Vial) 5 mg IV ONE ONE Stop: 03/30/21 11:14 Last Admin: 03/30/21 12:40 Dose: 5 mg Documented by: [id number] ECG Additional Comments: Normal sinus rhythm Normal ECG When compared with ECG of 25-MAR-2021 11:07, No significant change was found Code Status & VTE Plan Code Status CODE: FULL VTE: SCDs, Lovenox 40 subq daily Supervising Physician Co-Signing Physician Notes Patient seen and examined, chart reviewed, case discussed with WALT Ludwig and I agree with the assessment and plan as documented above. In brief, patient is a 40yo male presenting with nausea - patient with recently diagnosed mulitfocal PNA, suspect viral in etiology. Patient completed course of antibiotics and steroids On exam he is afebrile, HD stable, NAD Skin - intact, no rashes/lesions HEENT - NC/AT, PERRL, MMM, Neck supple, no oropharyngeal lesions Heart - +S1/S2, regular Lung - equal air entry bilaterally, scattered rhonchi throughout Abd - +BS, soft, NT/ND Ext - Intact, no rashes/lesions Labs and images reviewed Assessment/plan - 40yo male with bilateral airspace opacities - possible viral etiology. ?atypical bacterial, inflammatory/rheumatological, fungal -Appreciate Pulmonary input. Will plan for diagnostic bronchoscopy in AM -Remainder of plan as above PG Care Time/CCT Total # of Minutes Spent Total Time Spent with Patient: Total time spent is greater than 50% in coordination of care (as documented) at patient's floor/unit and/or counseling patient: Coding Level of Care Code 66021 Initial Inpt Care Lvl 3 Diagnoses Bilateral interstitial pneumonia J84.9 Nausea R11.0 Dehydration E86.0 Gastritis K29.00 Chronicity: acute Gastritis bleeding: without bleeding Gastritis type: unspecified gastritis (1) Gastritis Chronicity: acute Gastritis bleeding: without bleeding Gastritis type: unspecified gastritis Qualified Code(s): K29.00 - Acute gastritis without bleeding
[2021-03-30] MEDS ORDERED: OPTIRAY 320 100ml IV ONE (14:49)
--- NOTE | 2021-03-30 15:06 | CT Scan Report ---
CT chest diagnostic wo con CT DOSE: 506.95 mGy.cm HISTORY: Shortness of breath. TECHNIQUE: Multiaxial CT images of the chest were performed without contrast. A dose lowering techni que was utilized adhering to the principles of ALARA. COMPARISON: Chest CTA 03/25/2021. FINDINGS: No pneumothorax. No pleural effusions. The central airways are patent. Scattered multifocal groundglass airspace opacities have slightly improved in the interval. This is most pronounced withi n the right upper lobe. No fractures within the visualized osseous structures. Please refer to the abdomen and pelvis CT for further evaluation of the abdominal structures. The heart is normal in size. Normal esophagus. Slight improvement in the mild mediastinal lymphadenopathy. Normal caliber thoracic aorta. IMPRESSION: Slight improvement in the patchy multifocal groundglass airspace opacities and mediastinal lymphadeno mabel. This likely represents a resolving viral pneumonia. ACT 112: Negative or not required by law. Electronically signed by: Duane Tsai M.D. 03/30/2021 3:04 PM
--- NOTE | 2021-03-30 15:42 | CT Scan Report ---
CT OF THE ABDOMEN AND PELVIS WITH CONTRAST CLINICAL HISTORY: Upper abdominal pain. COMPARISON STUDY: None. TECHNIQUE: Following IV administration of 94 mL of Optiray, axial images of the abdomen and pelvis we re obtained from the lung bases to the proximal femurs. Images were reviewed in the axial, sagittal, and coronal planes. IV contrast was administered without complication. Automated exposure control wa s utilized for the study. A dose lowering technique was utilized adhering to the principles of ALARA . FINDINGS: Please note that the chest CT will be reported separately. Multifocal groundglass opacities within the lower lungs are noted. The findings are better depicted on the chest CT. No pneumatosis, free air or portal venous gas is present. The liver, spleen, adrenal glands, kidneys and pancreas are unremarkable. There is no biliary or pancreatic ductal dilatation. There is no peripancreatic or per icholecystic infiltration. No hydronephrosis is present. The caliber and wall thickness of small and large bowel are normal. The appendix is normal. There is trace fluid fluid within the pelvis. There i s no evidence for a bowel obstruction. Major vasculature is patent. No acute fracture or suspicious l esion is identified within the visualized skeletal structures. IMPRESSION: 1. No no bowel obstruction. No bowel wall thickening. Normal appendix. 2. Trace fluid within the pelvis, a nonspecific finding. 3. Multifocal groundglass opacities within the lungs consistent with viral pneumonia. These are josemanuel r depicted on the chest CT which will be reported separately. ACT 112: Negative or not required by law. Electronically signed by: David Harvey M.D. 03/30/2021 3:41 PM
--- NOTE | 2021-03-30 16:01 | Pulmonary Consultation ---
Date of Consultation March 30, 2021 Assessment & Plan (1) Bilateral interstitial pneumonia: (2) Flu-like symptoms: 40-year-old male with a past medical history of anxiety on Lexapro presenting to the emergency department due to nausea and vomiting. Abnormal CT chest: Findings highly concerning for viral pneumonia. His symptoms and imaging seem to be resolving somewhat. I suspect that he likely had a viral pneumonia earlier in the month and he is now slowly recovering. The nausea and vomiting was likely secondary to antibiotic use. Other possible etiologies include idiopathic interstitial pneumonia such as cryptogenic organizing pneumonia, e-cigarettevaping associated lung injury, acute hypersensitivity pneumonitis, atypical bacterial/fungal infections, mixed connective tissue disorder related interstitial lung disease and others. I did send for an RAOUL screen, hypersensitivity pneumonitis screen and ANCA screen. He did have an active sediment noted in the urine with protein and blood. Procalcitonin within normal limits. Would recommend discontinuing antibiotics at this time. I did order for a bio fire respiratory panel to evaluate for other viral etiologies. We will proceed with a bronchoscopy tomorrow including BAL, brushings and possible transbronchial biopsy. Patient understands the risks and benefits of bronchoscopy and consents to the procedure. Please make the patient n.p.o. and hold anticoagulation. Patient's parents are also in the room and expressed understanding of the diagnosis and treatment plan along with the patient. I discussed the case with the patient's admitting hospitalist. Greater than 50% of the time was spent [id number] with the patient counseling them on their diagnosis and treatment plan. This note was dictated using voice recognition software and may include grammatical errors, extra words, word substitutions and other inaccuracies due to errors in the voice recognition software and differences in speech patterns. History of Present Illness Reason for Consultation: Abnormal CT chest History of Present Illness 40-year-old male with past medical history of anxiety presenting to the hospital due to nausea and vomiting. His appetite has been very poor over the course of the last day. He has been in numerous outpatient antibiotics incl uding cefdinir, doxycycline and Levaquin due to flulike symptoms over the past month. He notes that earlier in the month he had fevers with temperatures upwards of 102. COVID-19 testing has been negative on several occasions. Patient is vaccinated against COVID-19. He denies any coughing. He denies any significant shortness of breath. He does note a past medical history of allergies. He has chronic dry eyes and dry mouth. He is on Lexapro for anxiety. His is from [place]. He lived in [place] for 17 years and moved back to [place] approximately 2 years ago. He recently purchased a warehouse where there was concern for mold. He notes mold testing was completed and none was found. He endorses vaping marijuana twice daily. He has not vaped marijuana over the last 3 weeks due to fatigue. He denies any tobacco use. He was on prednisone therapy for 3 to 4 days with no significant improvement of symptoms. He denies fever over the last couple days. His biggest complaint today is nausea and vomiting. He received IV fluids in the emergency department. He has a leukocytosis of 16,700. Platelet count elevated to 469,000. Mild peripheral eosinophilia noted on previous CBCs upwards of 8.6%. His ESR is elevated to 67. Procalcitonin 0.05. Urinalysis with 5-10 RBCs. Protein and ketones are seen. 20-30 epithelial cells were noted. COVID-19 testing was negative on 03/19/2021, 03/25/2021 and 03/30/2021. Lyme disease antibodies negative on 03/19/2021. Anaplasmosis smear was unremarkable. Blood cultures pending. CT chest demonstrated multifocal groundglass opacities with minimal mediastinal adenopathy. This is compared to the CT chest from 03/25/2021. There has been slight improvement in the groundglass opacities. Allergies Allergy/AdvReac Type Severity Reaction Status Date / Time aspirin Allergy Severe FACE AND Verified 03/30/21 11:12 THROAT SWELLS ibuprofen Allergy Severe FACE AND Verified 03/30/21 11:12 THROAT SWELL Home Medications Medication Instructions Recorded Confirmed Type escitalopram oxalate 20 mg tablet 30 mg PO QAM 03/19/21 03/30/21 History acetaminophen 500 mg tablet 500 - 1,000 mg PO Q6H PRN 03/22/21 03/30/21 History (Tylenol Extra Strength) naproxen sodium 220 mg tablet 220 mg PO BID PRN 03/22/21 03/30/21 History (Aleve) levofloxacin 750 mg tablet 750 mg PO DAILY 10 Days #10 tab 03/25/21 03/30/21 Rx prochlorperazine maleate 10 mg 10 mg PO QID PRN #14 tab 03/25/21 03/30/21 Rx tablet Patient History Medical History (Updated 03/30/21 @ 15:57 by Gasper Rodriguez MD) Depression Flu-like symptoms Pneumonia Family History Other Family history non-contributory Social History Smoking Status: Never smoker Preferred Language: Slovak Feels Safe at Home: Yes Review of Systems Review of Systems: All systems reviewed & are unremarkable except as noted in HPI & below Physical Exam Physical Exam: Constitutional: Patient appears to be of their stated age. Patient is in no apparent distress. Patient is well-developed. Eyes: Pupils are equal round and reactive to light. Conjunctivae are normal. Anicteric sclera. Ears nose, mouth and throat: No obvious deformities. Face mask in place. Neck: Trachea is midline. Visual inspection is normal. Respiratory: Clear to auscultation bilaterally. No use of accessory muscles. No significant clubbing noted. Cardiovascular: Regular rate and rhythm. No murmurs. No edema. Gastrointestinal: Normal bowel sounds, soft, nontender and nondistended. No hepatosplenomegaly noted. Musculoskeletal: No cyanosis. Patient is able to move all extremities. Strength is 5 out of 5 in the upper and lower extremities. Skin: No rashes, warm dry and intact. Neurologic: No obvious focal neurological deficits seen. Psychiatric: Alert and oriented x3 with a euthymic affect. Results & Data Results & Data ([facility]) Vital Signs (Past 12 Hours) Vital Signs Temp Pulse Pulse Resp BP BP Pulse Ox 03/30/21 13:10 98 03/30/21 13:00 72 16 115/80 98 03/30/21 12:04 99 03/30/21 11:42 75 18 95/64 L 98 03/30/21 09:42 98.1 F 106 H 20 94/65 L 93 Vital signs, labs and imaging reviewed as per HPI. Patient is saturating 98% on room air. PG Care Time/CCT Total # of Minutes Spent Total Time Spent with Patient: Total time spent is greater than 50% in coordination of care (as documented) at patient's floor/unit and/or counseling patient: Coding Level of Care Code 50403 Inpt Consult Level 5 Diagnoses Bilateral interstitial pneumonia J84.9 Flu-like symptoms R68.89
[2021-03-30] MEDS ORDERED: ACETAMINOPHEN 325 MG TAB PO PRN (16:13)
[2021-03-30] MEDS ORDERED: ONDANSETRON INJ 2 MG/ML 2 ML VIAL IV PRN (16:13)
[2021-03-30 16:49] LABS: INR 1.2 (0.9-1.1)
[2021-03-30] MEDS: LACTATED RINGER'S 1,000 ML IV SCH (16:54)
[2021-03-30 19:36] LABS: Adenovirus PCR Not Detected (NotDetected); Bordetella parapertussis PCR Not Detected (NotDetected); Bordetella pertussis PCR Not Detected (NotDetected); Chlamydia pneumoniae PCR Not Detected (NotDetected); Coronavirus 229E PCR Not Detected (NotDetected); Coronavirus CoV-2 (COVID19)PCR Not Detected (NotDetected); Coronavirus HKU1 PCR Not Detected (NotDetected); Coronavirus NL63 PCR Not Detected (NotDetected); Coronavirus OC43PCR Not Detected (NotDetected); Human Metapneumovirus PCR Not Detected (NotDetected); Influenza A PCR Not Detected (NotDetected); Influenza B PCR Not Detected (NotDetected); Mycoplasma pneumoniae PCR Not Detected (NotDetected); Parainfluenza Virus 1 PCR Not Detected (NotDetected); Parainfluenza Virus 2 PCR Not Detected (NotDetected); Parainfluenza Virus 3 PCR Not Detected (NotDetected); Parainfluenza Virus 4 PCR Not Detected (NotDetected); Respiratory Syncytial VirusPCR Not Detected (NotDetected); Rhinovirus/Enterovirus PCR Not Detected (NotDetected)
[2021-03-31] MEDS: LACTATED RINGER'S 1,000 ML IV SCH ×2 (02:58→14:03)
--- NOTE | 2021-03-31 06:33 | Electrocardiogram Report ---
Test Reason : Blood Pressure : / mmHG Vent. Rate : 069 BPM Atrial Rate : 069 BPM P-R Int : 136 ms QRS Dur : 078 ms QT Int : 412 ms P-R-T Axes : 052 066 050 degrees QTc Int : 441 ms Poor data quality, interpretation may be adversely affected Normal sinus rhythm Normal ECG When compared with ECG of 25-MAR-2021 11:07, No significant change was found Confirmed by Wes Streeter ([id number]) on 03/31/2021 6:33:20 AM Referred By: Confirmed By:Wes Streeter
[2021-03-31] MEDS ORDERED: ESCITALOPRAM OXALATE 10 MG TAB PO SCH (09:00)
[2021-03-31 09:02] LABS: Basophils # (auto) 0.02 K/uL (0-0.2); Basophils % (auto) 0.2 %; Eosinophils # (auto) 1.61 K/uL (0-0.5); Eosinophils % (auto) 12.3 %; Hematocrit (blood only) 39.7 % (42-52); Hemoglobin 14.1 g/dL (14.0-18.0); Immature Granulocytes # (auto) 0.42 K/uL (0.00-0.02); Immature Granulocytes % (auto) 3.2 %; Lymphocytes # (auto) 1.98 K/uL (1.2-3.4); Lymphocytes % (auto) 15.1 %; Mean Corpuscular Hemoglobin 30.3 pg (25-34); Mean Corpuscular Volume 85.4 fL (80-100); Mean Platelet Volume 9.6 fL (7.4-10.4); Monocytes # (auto) 0.37 K/uL (0.11-0.59); Monocytes % (auto) 2.8 %; Neutrophils % (auto) 66.4 %; Platelet Count 437 K/uL (130-400); RDW Coefficient of Variation 12.8 % (11.5-14.5); RDW Standard Deviation 39.7 fL (36.4-46.3); Red Blood Count 4.65 M/uL (4.7-6.1)
[2021-03-31 09:08] LABS: Mean Corpuscular Hgb Conc 35.5 g/dL (32-36)
[2021-03-31 09:33] LABS: BUN Creatinine Ratio 13.2 (10-20); Calcium 8.7 mg/dl (8.5-10.1); Creatinine Clr Calc Pharmacy 82.1 ml/min; Est GFR (African American) 109.2 ml/min; Est GFR (Non-African American) 94.2 ml/min; Magnesium 2.3 mg/dl (1.8-2.4); Potassium 3.9 mmol/L (3.5-5.1)
[2021-03-31] MEDS ORDERED: fentaNYL citrate 100 MCG/2 ML VIAL ONE ×2 (10:17→10:55)
[2021-03-31] MEDS ORDERED: MIDAZOLAM HCL 5 MG/ML 1 ML VIAL ONE ×2 (10:17→10:55)
--- NOTE | 2021-03-31 10:22 | History & Physical Bridge Note ---
Date of Service March 31, 2021 History & Physical Bridge Note I have examined the patient, reviewed the History & Physical and in the interval since the performance of the History & Physical I have noted the following changes of clinical significance: no changes noted
--- NOTE | 2021-03-31 10:23 | Pre Anesthesia Assessment ---
Date of Service March 31, 2021 Pre Sedation Assessment Vital Signs Temp Pulse Pulse Resp BP BP Pulse Ox 03/31/21 07:40 98.4 F 67 16 94/58 L 98 03/30/21 22:14 99.0 F 70 16 117/76 97 03/30/21 16:18 99.1 F 68 16 108/71 98 03/30/21 15:33 67 25 H 97 03/30/21 15:00 65 24 97 03/30/21 14:41 72 25 H 97 03/30/21 14:00 76 22 92/62 L 96 03/30/21 13:30 76 24 110/79 96 03/30/21 13:10 98 03/30/21 13:00 72 16 109/73 115/80 98 03/30/21 12:30 93 H 20 130/85 100 03/30/21 12:04 99 03/30/21 12:03 72 19 03/30/21 11:42 73 75 20 95/64 L 95/64 L 98 Pre-Sedation Airway Assessment Smoking Status: Never smoker Hx Sleep Apnea: No Short, Thick Neck: Yes Thyromental Distance: > or= 3.5 Finger Breadths Oral Cavity: + WNL Mallampati Class: II ASA: ASA2 NPO Status Date of Last Intake of Fluids: 03/31/21 Time of Last Intake of Fluids: 00:00 Last Oral Intake of Fluids Comment: sips with medication Date of Last Intake of Solid Food: 03/31/21 Time of Last Intake of Solid Foods: 00:00 Notes The planned sedation has been discussed with the patient. Informed Consent was obtained. I have identified the patient, determined the appropriateness of sedation and have assessed the patient immediately prior to the procedure. All medicine(s) and interventions are by my order.
[2021-03-31] MEDS ORDERED: LIDOCAINE 2% LOCAL 50 ML VIAL ONE (11:34)
[2021-03-31] MEDS ORDERED: OXYMETAZOLINE 0.05% 30 ML BTL ONE (11:35)
[2021-03-31] MEDS ORDERED: LIDOCAINE 4% INH SOLN 4 ML BTL ONE ×2 (11:35)
--- NOTE | 2021-03-31 11:38 | XRay Report ---
XR chest 1V portable HISTORY: 40 years-old Male s/p bronchoscopy follow-up study in a patient with pulmonary opacities an d recent bronchoscopy COMPARISON: Chest CT 03/30/2021, chest radiograph 03/30/2021 TECHNIQUE: Portable AP view of the chest FINDINGS: Mediastinal and hilar silhouettes are within normal limits. Progressively worsened right greater than left bilateral reticular interstitial densities with ill-defined airspace opacification. No pneumoth orax, or large pleural effusion. The bones appear grossly intact. IMPRESSION: 1. Progressively worsened right greater than left bilateral pulmonary opacities suggestive of multifo vira pneumonia. 2. No pneumothorax. ACT 112: Negative or not required by law. The above report was generated using voice recognition software. It may contain grammatical, syntax o r spelling errors. Electronically signed by: Ricardo Miles M.D. 03/31/2021 11:37 AM
--- NOTE | 2021-03-31 11:45 | Post Anesthesia Assessment ---
Date of Service March 31, 2021 Post Sedation Assessment Vital Signs Temp Pulse Pulse Resp BP BP BP 03/31/21 11:35 72 22 110/65 03/31/21 11:30 70 22 101/63 03/31/21 11:25 69 22 101/64 03/31/21 11:20 69 22 107/69 03/31/21 11:15 79 22 116/79 03/31/21 11:10 79 22 114/82 03/31/21 11:05 87 22 132/92 03/31/21 11:00 70 22 109/88 03/31/21 10:55 63 18 110/77 03/31/21 10:50 63 18 112/77 03/31/21 10:45 64 18 105/76 03/31/21 10:40 67 18 125/81 03/31/21 10:35 68 18 115/83 03/31/21 10:30 68 18 112/82 03/31/21 07:40 98.4 F 67 16 94/58 L 03/30/21 22:14 99.0 F 70 16 117/76 03/30/21 16:18 99.1 F 68 16 108/71 03/30/21 15:33 67 25 H 03/30/21 15:00 65 24 03/30/21 14:41 72 25 H 03/30/21 14:00 76 22 92/62 L 03/30/21 13:30 76 24 110/79 03/30/21 13:10 03/30/21 13:00 72 16 109/73 115/80 03/30/21 12:30 93 H 20 130/85 03/30/21 12:04 03/30/21 12:03 72 19 Pulse Ox 03/31/21 11:35 99 03/31/21 11:30 99 03/31/21 11:25 100 03/31/21 11:20 100 03/31/21 11:15 100 03/31/21 11:10 100 03/31/21 11:05 100 03/31/21 11:00 100 03/31/21 10:55 100 03/31/21 10:50 100 03/31/21 10:45 100 03/31/21 10:40 98 03/31/21 10:35 100 03/31/21 10:30 100 03/31/21 07:40 98 03/30/21 22:14 97 03/30/21 16:18 98 03/30/21 15:33 97 03/30/21 15:00 97 03/30/21 14:41 97 03/30/21 14:00 96 03/30/21 13:30 96 03/30/21 13:10 98 03/30/21 13:00 98 03/30/21 12:30 100 03/30/21 12:04 99 03/30/21 12:03 Recovery Score Activity: Moves 4 extremities Respiration: Deep Breath/Cough Circulation: +/-20% PreAnes Value Consciousness: Fully Awake Oxygen Saturation: O2 needed for >90% Post Anesthesia Score: 9 Discharge Sedation Level of Care: Fast Track Phase II Post Sedation Plan On clinical assessment, the patient appears to have tolerated the sedation without complications. Patient is recovering as anticipated. Patient will continue to be monitored by nursing and may be discharged when sedation discharge criteria are met per below protocol. Upon Completions of procedure up to 15 minutes continue every 5 minute vital signs and the P.A.R. score; then discharge to a Phase I or Fast Track to Phase II per the following guidelines: * Discharge Patient to appropriate Phase II area if PAR is 8 or greater or return to pre- procedure baseline. The post - procedure orders will be as directed. * If PAR score is less than 8 or not return to pre-procedure baseline then patient will follow Phase I monitoring till PAR is reached for Phase II. The Phase I may be done in procedure room or may call to secure a Phase I area. * If naloxone or flumazenil are used for reversal, hold in Phase I for continued monitoring from when last reversal dose was given for a minimum of 60 minutes or longer pending the nurse and/or physician discretion of patient condition before discharge to Phase II. Please call the Sedation Physician to re-evaluate and complete post-note for discharge to Phase II area. Do NOT discharge from procedure sedation or Phase 1 until post- sedation evaluation note is complete by procedure /sedation MD Sedation Discharge Instructions to be given to the patient at discharge to home.
--- NOTE | 2021-03-31 11:51 | Procedure Note ---
Procedure Note: Bronchoscopy Procedure PREOPERATIVE DIAGNOSIS: Diffuse groundglass opacities POSTOPERATIVE DIAGNOSIS: Diffuse groundglass opacities PROCEDURE PERFORMED: Flexible fiberoptic bronchoscopy with bronchoalveolar lavage from right middle lobe and brushings from the right upper lobe COMPLICATIONS: None. INDICATION: Evaluate for infectious etiology PROCEDURE: After obtaining an informed consent, the patient was brought to the Bronchoscopy Suite. The patient had appropriate oxygen, blood pressure, heart rate, and respiratory rate monitoring applied and monitored continuously throughout the procedure. Supplemental oxygen via nasal cannula as per nursing records was applied to the nasopharynx with adequate saturations achieved. Topical anesthesia with nebulized 1% lidocaine was achieved. Subsequent to this, the patient was premedicated with 9 mg of midazolam and 250 mcg of fentanyl. The bronchoscope was inserted via the mouth. Vocal cords were noted to be moving normally without lesions. Trachea was inspected and appeared normal. Krista was sharp. Bilateral mild amount of foamy secretions noted. Inspection of the bilateral tracheobronchial tree was completed. No obvious lesions seen. I wedge my scope into the right middle lobe. We instilled 120 mL of saline and aspirated back approximately 50 mL of BAL fluid which appeared foamy. I then went to the scope into the right upper lobe. We performed microscopy brushings from the right upper lobe and cytology brushings. No significant bleeding was seen. Patient was significantly coughing throughout the procedure. He was requiring high amounts of sedation. I elected not to perform transbronchial biopsies due to the coughing. Scope was then withdrawn. Patient tolerated procedure well. Recommendations: Follow cultures and cytology from the brushings and BAL fluid. Cell counts were ordered as well.
--- NOTE | 2021-03-31 13:10 | Pulmonology Progress Note ---
Date of Service March 31, 2021 Assessment & Plan (1) Bilateral interstitial pneumonia: (2) Flu-like symptoms: Plan: 40-year-old male with a past medical history of anxiety on Lexapro presenting to the emergency department due to nausea and vomiting. Abnormal CT chest: Likely resolving viral infection and/or vaping induced lung injury. Autoimmune labs sent as well. Bronchoscopy performed today. Follow-up cultures, cell counts and cytology. Strongly encouraged cessation of all smoking and vaping. CT chest findings appear to be resolving compared to the CT chest earlier in the month. Please see yesterday's consultation for further details regarding differential. Procalcitonin within normal limits. No antibiotics indicated at this time. Bio fire testing negative for viral etiology. I discussed the case with the patient's hospitalist. Will defer discharge to the patient's hospitalist. Patient will follow up in the pulmonary clinic with me in a week or so. Greater than 50% of the time was spent [id number] with the patient counseling them on their diagnosis and treatment plan. This note was dictated using voice recognition software and may include grammatical errors, extra words, word substitutions and other inaccuracies due to errors in the voice recognition software and differences in speech patterns. Admission and Anticipated Discharge Date Admission Date: March 30, 2021 Subjective Patient seen and examined this morning. He feels much better from a nausea p erspective. He is hungry and has a very good appetite. He notes that he ate well yesterday. He denies any fevers or chills. No chest pain. He does have some mild pain in his throat. He thinks he may be developing thrush due to the antibiotics and steroids that he was previously on. Review of Systems Review of Systems: All systems reviewed & are unremarkable except as noted in HPI & below Physical Exam Physical Exam: Constitutional: Patient appears to be of their stated age. Patient is in no apparent distress. Patient is well-developed. Eyes: Pupils are equal round and reactive to light. Conjunctivae are normal. Anicteric sclera. Ears nose, mouth and throat: No obvious deformities. Possible thrush seen. Neck: Trachea is midline. Visual inspection is normal. Respiratory: Clear to auscultation bilaterally. No use of accessory muscles. No significant clubbing noted. Cardiovascular: Regular rate and rhythm. No murmurs. No edema. Gastrointestinal: Normal bowel sounds, soft, nontender and nondistended. No hepatosplenomegaly noted. Musculoskeletal: No cyanosis. Patient is able to move all extremities. Strength is 5 out of 5 in the upper and lower extremities. Skin: No rashes, warm dry and intact. Neurologic: No obvious focal neurological deficits seen. Psychiatric: Alert and oriented x3 with a euthymic affect. Results & Data Results & Data ([facility]) Vital Signs (Past 12 Hours) Vital Signs Temp Pulse Pulse Resp BP BP Pulse Ox 03/31/21 11:55 66 18 101/73 98 03/31/21 11:35 72 22 110/65 99 03/31/21 11:30 70 22 101/63 99 03/31/21 11:25 69 22 101/64 100 03/31/21 11:20 69 22 107/69 100 03/31/21 11:15 79 22 116/79 100 03/31/21 11:10 79 22 114/82 100 03/31/21 11:05 87 22 132/92 100 03/31/21 11:00 70 22 109/88 100 03/31/21 10:55 63 18 110/77 100 03/31/21 10:50 63 18 112/77 100 03/31/21 10:45 64 18 105/76 100 03/31/21 10:40 67 18 125/81 98 03/31/21 10:35 68 18 115/83 100 03/31/21 10:30 68 18 112/82 100 03/31/21 07:40 98.4 F 67 16 94/58 L 98 vital signs, labs and imaging reviewed. Post bronchoscopy chest x-ray with increased interstitial markings. PG Care Time/CCT Total # of Minutes Spent Total Time Spent with Patient: Total time spent is greater than 50% in coordination of care (as documented) at patient's floor/unit and/or counseling patient: Coding Level of Care Code 51406 Subseq Hosp Care Lvl 2 Diagnoses Bilateral interstitial pneumonia J84.9 Flu-like symptoms R68.89
[2021-03-31 13:31] LABS: Eosinophil Body Fluid Man 3 %; Fluid Mono/Macrophage 78 %; Lymphocyte Body Fluid Man 10 %; Neutrophil Body Fluid Man 9 %
--- NOTE | 2021-03-31 16:45 | Discharge Summary ---
Date of Service March 31, 2021 Admission HPI Per Admitting Provider 40 YOM with past medical history: Anxiety, PNA. Patient originally was diagnosed with PNA on , following a 5-6 days of flulike symptoms of fevers, chest tightness, nonproductive cough, fatigue and sore throat. He has negative COVID tests. The patient did buy a warehouse last month that he reports was damp and had mold in it. He was not involved in the cleaning of this, but was in the warehouse. Patient does not smoke but endorses recently stopping vaping. He also had a negative anaplasmosis and Lyme. He was originally placed on Cefdinir and Doxycycline; patient then returned on for nausea and vomiting but with mild improvement in his respiratory complaints. He had a CXR repeated at that time with some progression of interstitial thickening and small bilateral opacities. He was originally taking the doxycycline without food per reports. Patient returned on for worsening of fevers and body aches and continued nausea without vomiting. He had a CT of the chest performed with multilobar ground glass opacities favoring viral PNA. His antibiotics were changed to Levaquin and was started on Pepcid orally and started on Steroids for his dyspnea. he was given 60mg of prednisone for 4 days. He reports that on the last day of his steroids he felt well but on the next day felt very tired and his nausea returned. He has not been able to keep down his medications. The patient endorses that he still is having night sweats that occur every night to where he has to change his shirt ~ 3 x per night. Today his CXR shows bilateral opacities with improvement from 03/25. His RR and SPO2 are improved from prior. WBC count increased to 16 with NLR 7:1. He was given a dose of Cefepime and Vancomycin in the EMD. Hospitalist service was consulted for admission. Patient will be admitted for continued evaluation of his pulmonary status and inflammatory/infectious markers. Patient was ordered a CT of the abdomen with contrast by the [facility], will add on CT of the chest without contrast to evaluate pulmonary process. Pulmonary consult placed. Patient has received his COVID vaccine and his COVID test on admission is NEGATIVE. Principal Diagnosis 1. interstitial pneumoniapresumed recent viral infection (improving) 2. ? Hypersensitivity interstitial pneumonitis from vaping 3. Thrush Discharge Exam General: Resting comfortably in his hospital bed. NAD. HEENT: Head is AT/NC buccal mucosa erythematous. Tongue with white patches consistent with thrush Neck: No JVD. Negative hepatojugular reflex Cardiac: RRR without M/G/R Lungs: Speaking full sentences on ambient air. Good air exchange throughout without wheezes, rales or rhonchi. Negative egophony throughout Abdomen: Normoactive X4. Soft and nontender in all quadrants. Extremities: No peripheral clubbing cyanosis or edema Neuro: A&O X4 cranial nerves II through XII are grossly intact no focal neuro deficits Skin: No obvious skin lesions or rashes Psych: Appropriate affect pleasant and cooperative Discharge Data Allergies Allergy/AdvReac Type Severity Reaction Status Date / Time aspirin Allergy Severe FACE AND Verified 03/30/21 11:12 THROAT SWELLS ibuprofen Allergy Severe FACE AND Verified 03/30/21 11:12 THROAT SWELL Consultations 03/30/21 13:39 ED Decision to Admit Stat 03/30/21 16:13 Consult Pulmonology Routine Assessment & Plan (1) Bilateral interstitial pneumonia: (2) Flu-like symptoms: Plan: 40-year-old male with a past medical history of anxiety on Lexapro presenting to the emergency department due to nausea and vomiting. Abnormal CT chest: Likely resolving viral infection and/or vaping induced lung injury. Autoimmune labs sent as well. Bronchoscopy performed today. Follow-up cultures, cell counts and cytology. Strongly encouraged cessation of all smoking and vaping. CT chest findings appear to be resolving compared to the CT chest earlier in the month. Please see yesterday's consultation for further details regarding differential. Procalcitonin within normal limits. No antibiotics indicated at this time. Bio fire testing negative for viral etiology. I discussed the case with the patient's hospitalist. Will defer discharge to the patient's hospitalist. Patient will follow up in the pulmonary clinic with me in a week or so. Procedures Performed Operation Date: 03/31/21 10:00 Actual Procedures p Bronchoscopy (Bilateral) - Gasper Rodriguez MD INDICATION: Evaluate for infectious etiology PROCEDURE: After obtaining an informed consent, the patient was brought to the Bronchoscopy Suite. The patient had appropriate oxygen, blood pressure, heart rate, and respiratory rate monitoring applied and monitored continuously throughout the procedure. Supplemental oxygen via nasal cannula as per nursing records was applied to the nasopharynx with adequate saturations achieved. Topical anesthesia with nebulized 1% lidocaine was achieved. Subsequent to this, the patient was premedicated with 9 mg of midazolam and 250 mcg of fentanyl. The bronchoscope was inserted via the mouth. Vocal cords were noted to be moving normally without lesions. Trachea was inspected and appeared normal. Krista was sharp. Bilateral mild amount of foamy secretions noted. Inspection of the bilateral tracheobronchial tree was completed. No obvious lesions seen. I wedge my scope into the right middle lobe. We instilled 120 mL of saline and aspirated back approximately 50 mL of BAL fluid which appeared foamy. I then went to the scope into the right upper lobe. We performed microscopy brushings from the right upper lobe and cytology brushings. No significant bleeding was seen. Patient was significantly coughing throughout the procedure. He was requiring high amounts of sedation. I elected not to perform transbronchial biopsies due to the coughing. Scope was then withdrawn. Patient tolerated procedure well. Ordered Studies 03/30/21 12:59 IMPRESSION: 1. No no bowel obstruction. No bowel wall thickening. Normal appendix. 2. Trace fluid within the pelvis, a nonspecific finding. 3. Multifocal groundglass opacities within the lungs consistent with viral pneumonia. These are better depicted on the chest CT which will be reported separately. 03/30/21 14:12 CT chest diagnostic wo con Stat IMPRESSION: Slight improvement in the patchy multifocal groundglass airspace opacities and mediastinal lymphadenopathy. This likely represents a resolving viral pneumonia. Hospital Course (1) Bilateral interstitial pneumonia: Bacterial vs. viral vs. hypersensitivity pneumonia vs. rheumatology/inflammatory -Seen in the ED on 03/19 with flulike symptoms including fever of 102). Diagnosed with multilobar pneumonia and placed on Omnicef/doxycycline and provided a ProAir inhaler -Subsequently developed vomiting which he thought was related to the antibiotic. Seen in the ED on 03/22 and provided supportive care -Continued having issues with eating with developing mouth pain which prompted him to come to the ED on 03/25. At that time, his antibiotic therapy was changed to Levaquin and he was placed on a tapering course of prednisone. CTA showed continued opacities but no evidence of PE -Came back to the ED on 03/30 mostly because of mouth pain and inability to eat. -At this point, has completed an 11 day course of broad spectrum antibiotics to include- doxy/cefdinir/Levaquin - Completed 60 mg 4 day course of prednisone -Follow-up imaging done this hospitalization shows improving airspace disease -His WBC count is 16.77; however, this is likely steroid-induced -Has been seen by pulmonology. Bio fire and autoimmune labs sent. Patient is status post bronchoscopy with bronchial washing. -Pulmonology believes his issues may be secondary to vaping versus resolving v iral pneumonia -He has not had any fevers and his respiratory symptoms/flulike symptoms have resolved -The main issue leading up to this hospital stay was nausea, mouth pain, and inability to eat. He does have clinical evidence of thrushsee below (2) Thrush: -This is likely the reason he has had mouth pain with inability to tolerate most oral intake over the past several days -Secondary to antibiotic and steroid therapy -Did discuss with pulmonology. Bronchoscopy not highly suspicious for fungal pneumonia however fungal cultures taken. Not recommending systemic Diflucan at this time -DC with Mycelex (3) Nausea: -May be related to antibiotic use. Currently resolved (4) Dehydration: -Due to lack of oral intake. Resolved with IV hydration By CMS guidelines, a determination that the admission or continued stay is not medically necessary has been made by a member of the UR committee and a physician for this hospital stay, therefore a Code 44 will be completed and the Inpatient admission will be changed to outpatient. Total Time Total Time Spent Total Time Spent (In Minutes): 45 min Discharge Plan Discharge Items Patient Disposition: Home - Self-Care Reason For Visit: NAUSEA, ABD PAIN, PNA Discharge Diagnosis: 1. Resolving Viral Pneumonia 2. ? Hypersensitivity Pneumonitis secondary to Vaping 3. Thrush Activity: Resume your previous activity Non-emergency contact: Primary Care Provider and [employer] Call non-emergency contact if: you have any medication questions and your symptoms worsen Follow-up/Referrals: Gasper Rodriguez MD [Physician] - 04/06/21 9:30 am (APPT WITH DR VILLALOBOS ) PCP,NO [Primary Care Provider] - Diet: Regular Addtl Attending Provider Instructions: - NO VAPING - Mycelex Lozenges ordered for associated thrush (5x/day for 5 days) - follow up with Pulmonology in 1-2 weeks (if you do not here from us with an appt sarah and time-- please call) - return to the ED for new or worsening symptoms Pending Studies at Discharge: Yes Studies:: cultures from bronchoscopy Stand-Alone Forms: My [facility], Smoking Cessation Medications and DC Order Prescriptions: New clotrimazole 10 mg lachelle 10 mg PO .5x/day Qty: 35 RF: 0 Continued acetaminophen [Tylenol Extra Strength] 500 mg Tablet 500 - 1,000 mg PO Q6H PRN (Reason: Pain) RF: 0 naproxen sodium [Aleve] 220 mg Tablet 220 mg PO BID PRN (Reason: Pain) RF: 0 prochlorperazine maleate 10 mg tablet 10 mg PO QID PRN (Reason: nausea and vomiting) Qty: 14 RF: 0 escitalopram oxalate 20 mg tablet 30 mg PO QAM RF: 0 Discontinued levofloxacin 750 mg tablet 750 mg PO DAILY 10 Days Qty: 10 RF: 0 Discharge Orders: Discharge Order (Routine); Ordered 03/31/21 Ordered By: Jeri Mejia/Other Patient Handouts: Understanding E-Cigarettes and Vaping Admission Data Admit Date/Time: 03/30/21 14:37 Attending Provider: Shahid Das Admit Provider: Maria D Corrales Primary Care Provider: PCP,NO Other Providers: Maria D Corrales ; Gasper Rodriguez Other Interventions: Discharge Summary Assessment (RN) Last Done: 03/31/21 14:12 Supervising Physician Co-Signing Physician Notes Patient seen and examined on the day of discharge. I agree with the discharge summary by Jeri CERON. I have reviewed the chart including labs, imaging and plans for discharge. patient is eating, pain in throat is better discussed case with Dr. Rodriguez, appreciate his input, likely viral pneumonia or vaping injury - Throat pain, oral thrush: topical treatment, follow up with PCP - Bilateral infiltrates on CXR: likely resolving viral pneumonia, could be vaping pneumonitis breathing room air comfortably, no fever, no cough follow up with pulmonology [place] [address] OBS Care - Discharge Patient Type Established Diagnoses Bilateral interstitial pneumonia J84.9 Nausea R11.0 Dehydration E86.0 Thrush B37.0
[2021-04-10 13:50] LABS: ANCA Screen Negative (Negative); Anti Cardiolipin Ab IgG <2.0 GPL-U/mL; Anti Cardiolipin Ab IgM 4.1 MPL-U/mL; Anti Nuclear Antibody Screen NEGATIVE (NEGATIVE); Anti-Cardiolipin Ab IgA <2.0 APL-U/mL; Anti-Centromere Ab <1.0 NEG AI (<1.0 NEG); Anti-SS-A <1.0 NEG AI (<1.0 NEG); Anti-SS-B <1.0 NEG AI (<1.0 NEG); Aspergillus fumigatus NEGATIVE (NEGATIVE); Chromatin Antibody <1.0 NEG AI (<1.0 NEG); Complement C3 154 mg/dL (82-185); DNA ds Crithidia NEGATIVE (NEGATIVE); JO 1 Antibody <1.0 NEG AI (<1.0 NEG); Microsomal Ab 1 IU/mL (<9); Myeloperoxidase Ab <1.0 AI (<1.0); Proteinase-3 AB <1.0 AI (<1.0); RNP Antibody <1.0 NEG AI (<1.0 NEG); Scleroderma Anti Scl-70 Ab <1.0 NEG AI (<1.0 NEG); Sm Antibody <1.0 NEG AI (<1.0 NEG)
== END 2021-03-31 14:30 | disposition home or self-care (01) | DRG 205 ==
LOC: ED 09:30 → SUATTDRO 14:37 → 3E 14:37